=== PATIENT | female | born 1970 | race Caucasian/White ===

== ENCOUNTER 2021-05-09 11:36 | Emergency (ER) | payer BC ==
[~2021-05-09 11:36] MED LIST: Iopamidol-370 76% 500 ML 1 ML ONE
[2021-05-09] MEDS ORDERED: Acetaminophen 500 MG TAB ONE ×2 (15:19)
[2021-05-09] MEDS ORDERED: Ketorolac Tromethamine 30 MG/ML VIAL ONE (15:58)
[2021-05-09] MEDS ORDERED: Metoclopramide HCl 10 MG/2 ML VIAL ONE (15:58)
[2021-05-09] MEDS ORDERED: diphenhydrAMINE 50 MG/ML VIAL ONE (15:58)
[2021-05-09] MEDS ORDERED: Metoclopramide 10 MG/10 ML UDCUP ONE (15:58)
== END 2021-05-09 17:54 | disposition home or self-care (01) ==
LOC: ERS 11:36
DX: S06.0X0A Concussion without loss of consciousness, initial encounter (principal); I10 Essential (primary) hypertension; Z79.899 Other long term (current) drug therapy; X58.XXXA Exposure to other specified factors, initial encounter
CPT/HCPCS: 70496; 70498; 96365; 96366; 96375; J1200; J1885; J2765; Q9967